=== PATIENT | male | born 1995 | race Caucasian/White ===

== ENCOUNTER 2021-03-20 19:30 | Emergency (ER) | payer OTHER, SELFPAY ==
[~2021-03-20] VITALS: Ht 182.9 cm; Wt 119.6 kg
[2021-03-20 21:14] VITALS: BP 156/83
== END 2021-03-20 22:06 | disposition home or self-care (01) ==
LOC: M ED 19:30
DX: S61.011A Laceration without foreign body of right thumb without damage to nail, initial encounter (principal); W26.8XXA Contact with other sharp object(s), not elsewhere classified, initial encounter; Y92.018 Other place in single-family (private) house as the place of occurrence of the external cause

== ENCOUNTER 2022-08-15 19:41 | Emergency (ER) | payer OTHER ==
[~2022-08-15] VITALS: Ht 182.9 cm; Wt 129.6 kg
[2022-08-15] MEDS ORDERED: IBUPROFEN 800 MG TAB PO ONE (21:05)
[2022-08-15] MEDS ORDERED: MEDR4PAK PO (21:42)
[2022-08-15] MEDS ORDERED: PERCOCET 5MG/325MG TAB PO ONE (21:45)
[2022-08-15] MEDS ORDERED: predniSONE 20 MG TAB PO ONE (21:45)
[2022-08-15] MEDS ORDERED: OXYCODONE/APAP 5MG/325MG(HOME DOSE PACK) PO ONE (22:10)
[2022-08-15 22:15] VITALS: BP 159/82
== END 2022-08-15 22:55 | disposition home or self-care (01) ==
LOC: M ED 19:41
DX: S62.521A Displaced fracture of distal phalanx of right thumb, initial encounter for closed fracture (principal); S63.501A Unspecified sprain of right wrist, initial encounter; W00.0XXA Fall on same level due to ice and snow, initial encounter; F10.10 Alcohol abuse, uncomplicated; Y92.009 Unspecified place in unspecified non-institutional (private) residence as the place of occurrence of the external cause; Y93.9 Activity, unspecified; Z88.2 Allergy status to sulfonamides
CPT/HCPCS: 73110; 73130; 99284; J7512

== ENCOUNTER → 2022-08-19 | Outpatient (CLI) | payer OTHER ==
[~2022-08-19] MED LIST: MEDR4PAK PO
== END ==
LOC: MERGE 12:50 → M RAD 12:50
PROVIDERS: ATTEND Orthopaedic Surgery Hand Surgery
DX: S62.231A Other displaced fracture of base of first metacarpal bone, right hand, initial encounter for closed fracture (principal); X58.XXXA Exposure to other specified factors, initial encounter; Y92.9 Unspecified place or not applicable

== ENCOUNTER → 2022-08-28 | Outpatient (CLI) | payer OTHER ==
[~2022-08-28] MED LIST changes: +PERC5TAB12 PO
== END ==
LOC: M LABSMTC 10:38
PROVIDERS: ATTEND Anesthesiology
DX: Z01.812 Encounter for preprocedural laboratory examination (principal); Z20.822 Contact with and (suspected) exposure to COVID-19

== ENCOUNTER 2022-08-29 09:12 | Day surgery (SDC) | payer OTHER ==
[~2022-08-29] VITALS: Ht 182.9 cm; Wt 121.7 kg
[~2022-08-29 09:12] MED LIST changes: -PERC5TAB12 PO
[2022-08-29] MEDS ORDERED: LR 1,000 ML IV SCH ×2 (09:30→13:20)
[2022-08-29] MEDS ORDERED: LIDOCAINE 2% 100MG/5ML SDV (FOR ANES.) As Ordered ONE (09:54)
[2022-08-29] MEDS ORDERED: MIDAZOLAM INJ 2MG/2ML VIAL As Ordered ONE (09:54)
[2022-08-29] MEDS ORDERED: fentaNYL 100 MCG/2 ML INJECTION As Ordered ONE ×2 (09:54→10:47)
[2022-08-29] MEDS ORDERED: propofoL 200 MG/20 ML VIAL As Ordered ONE ×2 (09:54→10:47)
[2022-08-29] MEDS ORDERED: BACITRACIN OINTMENT 30GM TUBE As Ordered ONE (10:17)
[2022-08-29] MEDS ORDERED: BUPIVACAINE HCL 0.25% 10ML VIAL As Ordered ONE (10:17)
[2022-08-29] MEDS ORDERED: ONDANSETRON 4MG 2ML VIAL As Ordered ONE (10:52)
[2022-08-29] MEDS ORDERED: ACETAMINOPHEN 1000MG 100ML IV BAG As Ordered ONE (11:02)
[2022-08-29] MEDS ORDERED: GLYCOPYRROLATE INJ 0.2 MG/ML 2 ML VIAL As Ordered ONE (11:14)
[2022-08-29] MEDS ORDERED: ceFAZolin 2 GM/D5W 50 ML IV BAG As Ordered ONE (11:18)
[2022-08-29] MEDS ORDERED: HYDROmorphone HCL 2MG/ML 1ML VIAL As Ordered ONE (12:15)
[2022-08-29] MEDS ORDERED: KETOROLAC 60MG 2ML VIAL As Ordered ONE (12:53)
[2022-08-29] MEDS ORDERED: PERC5TAB12 PO (13:18)
[2022-08-29] MEDS ORDERED: ONDANSETRON 4MG 2ML VIAL IV PRN (13:20)
[2022-08-29] MEDS ORDERED: oxyCODONE 5MG TAB PO PRN (13:20)
[2022-08-29] MEDS ORDERED: HYDROMORPHONE HCL 0.5 MG/ 0.5 ML SYRINGE IV PRN (13:20)
[2022-08-29] MEDS: fentaNYL 100 MCG/2 ML INJECTION IV PRN ×4 (13:54→14:15)
[2022-08-29 14:30] VITALS: BP 148/76
== END 2022-08-29 15:00 | disposition home or self-care (01) ==
LOC: M SDC 09:12
PROVIDERS: ATTEND Orthopaedic Surgery Hand Surgery
DX: S62.211A Bennett's fracture, right hand, initial encounter for closed fracture (principal); W00.0XXA Fall on same level due to ice and snow, initial encounter; Y92.89 Other specified places as the place of occurrence of the external cause
CPT/HCPCS: 26665; 76000; J1100; J2405

== ENCOUNTER → 2022-09-08 | Outpatient (CLI) | payer OTHER ==
[~2022-09-08] MED LIST changes: +PERC5TAB12 PO
== END ==
LOC: M SOG 09:05
PROVIDERS: ATTEND Physician Assistant
DX: S62.211D Bennett's fracture, right hand, subsequent encounter for fracture with routine healing (principal)

== ENCOUNTER → 2022-09-26 | Outpatient (CLI) | payer OTHER | LOC: M SOG 14:27 | PROVIDERS: ATTEND Physician Assistant | DX: M79.641 Pain in right hand (principal); Z47.89 Encounter for other orthopedic aftercare; Z53.9 Procedure and treatment not carried out, unspecified reason ==

== ENCOUNTER → 2022-10-07 | Outpatient (CLI) | payer OTHER | LOC: M SOG 08:32 | PROVIDERS: ATTEND Physician Assistant | DX: S62.211D Bennett's fracture, right hand, subsequent encounter for fracture with routine healing (principal) ==

== ENCOUNTER → 2022-10-31 | Outpatient (CLI) | payer OTHER | LOC: M SOG 08:30 | PROVIDERS: ATTEND Physician Assistant | DX: S62.211D Bennett's fracture, right hand, subsequent encounter for fracture with routine healing (principal); Z47.89 Encounter for other orthopedic aftercare ==